=== PATIENT | female | born 1955 | race Caucasian/White ===

== ENCOUNTER → 2024-01-05 06:52 | Outpatient (REF) | payer MEDICARE, SELFPAY | LOC: MRI 06:52 | PROVIDERS: ATTENDING PHYSICIAN Specialist; FAMILY PHYSICIAN Internal Medicine | DX: M25.562 Pain in left knee (principal) | CPT/HCPCS: 73721 ==

== ENCOUNTER → 2024-06-09 14:32 | Outpatient (REF) | payer MEDICARE, SELFPAY | LOC: WDC 14:32 | PROVIDERS: ATTENDING PHYSICIAN Internal Medicine | DX: Z12.31 Encounter for screening mammogram for malignant neoplasm of breast (principal) | CPT/HCPCS: 77063; 77067 ==

== ENCOUNTER → 2024-09-16 14:19 | Outpatient (REF) | payer MEDICARE, SELFPAY | LOC: HWRAD 14:19 | PROVIDERS: ATTENDING PHYSICIAN Nurse Practitioner Family; FAMILY PHYSICIAN Internal Medicine | DX: R35.0 Frequency of micturition (principal); R33.9 Retention of urine, unspecified | CPT/HCPCS: 76770 ==